=== PATIENT | female | born 1995 | race Two or more races ===

== ENCOUNTER 2023-10-11 15:05 | Inpatient (IN) | payer OTHER ==
[~2023-10-11] VITALS: Ht 160 cm; Wt 90.7 kg
[2023-10-11 16:12] LABS: HEMATOCRIT 34.4 % (36.0-45.00); HEMOGLOBIN 11.7 g/dL (12.0-15.00); MEAN CELL VOLUME 89.5 fL (80.00-100.00); MEAN CORPUSCULAR HEMOGLOBIN 30.4 pg (27.00-32.0); PLATELET COUNT 240 K/uL (150-450); RED BLOOD COUNT 3.85 M/uL (4.00-6.00); RED CELL DISTRIBUTION WIDTH 13.9 % (11.5-14.5)
[2023-10-11 16:31] LABS: ALBUMIN 3.1 gm/dL (3.4-5.0); BILIRUBIN TOTAL 0.22 mg/dL (0.3-1.2); CALCIUM 8.9 mg/dL (8.5-10.1); CREATININE SERUM 0.52 mg/dL (0.55-1.02); GFR 138.46; GLOBULINA 3.6 G/DL (2.4-3.5); POTASSIUM 3.92 mEq/L (3.5-5.1); TOTAL PROTEIN 6.7 gm/dL (6.4-8.2)
[2023-10-11 16:33] LABS: INR 0.94; PARTIAL THROMBOPLASTIN TIME 29.6 SECONDS (22.0-34.0); PROTHROMBIN TIME 9.9 SECONDS (9.0-11.5)
[2023-10-11] MEDS ORDERED: PRENATABS RX T1 EACH PO (18:15)
[2023-10-11 20:56] LABS: PH,URINE 6.5 (5.0-8.0); URINE APPEARANCE Clear; URINE BILIRRUBIN Negative (NEGATIVE); URINE BLOOD Large; URINE COLOR Yellow; URINE GLUCOSE Negative (NEGATIVE); URINE LEUKOCYTE Small; URINE NITRATE Negative; URINE PROTEIN Negative (NEGATIVE); URINE UROBILINOGEN 0.2 E.U./dl
[2023-10-11 21:05] LABS: URINE BACTERIA 75.5 uL (0.0-1933); URINE EPITHELIAL CELLS 5.8 uL (0.0-38.8); URINE RBC 2281.3 uL (0.0-20.8)
[2023-10-12] MEDS ORDERED: MORGIDOX100 MG PO (09:04)
== END 2023-10-12 10:33 | disposition home or self-care (01) | DRG 805 ==
LOC: LDR 15:05 → SURH 10-12 00:30
PROVIDERS: ADMIT Obstetrics & Gynecology; ATTEND Obstetrics & Gynecology
PROC: 10E0XZZ Delivery of Products of Conception, External Approach (ICD-10-PCS; principal; 2023-10-11)
PROC: 4A1HXCZ Monitoring of Products of Conception, Cardiac Rate, External Approach (ICD-10-PCS; 2023-10-11)
PROC: BY4CZZZ Ultrasonography of Second Trimester, Single Fetus (ICD-10-PCS; 2023-10-11)
PROC: BU4CZZZ Ultrasonography of Uterus and Ovaries (ICD-10-PCS; 2023-10-11)
PROC: 3E033VJ Introduction of Other Hormone into Peripheral Vein, Percutaneous Approach (ICD-10-PCS; 2023-10-11)
PROC: 3E0P7VZ Introduction of Hormone into Female Reproductive, Via Natural or Artificial Opening (ICD-10-PCS; 2023-10-11)
DX: O69.0XX0 Labor and delivery complicated by prolapse of cord, not applicable or unspecified (principal); O60.12X0 Preterm labor second trimester with preterm delivery second trimester, not applicable or unspecified; Z37.1 Single stillbirth; O42.112 Preterm premature rupture of membranes, onset of labor more than 24 hours following rupture, second trimester; O26.842 Uterine size-date discrepancy, second trimester; Z3A.19 19 weeks gestation of pregnancy; Z20.822 Contact with and (suspected) exposure to COVID-19

== ENCOUNTER 2024-10-26 14:29 | Emergency (ER) | payer OTHER ==
[~2024-10-26] VITALS: Ht 160 cm; Wt 86.2 kg
[~2024-10-26 14:29] MED LIST: IBU600 MG PO; MORGIDOX100 MG PO; PRENATABS RX T1 EACH PO
[2024-10-26] MEDS ORDERED: PRENATA CHEWAB1 EACH (14:43)
[2024-10-26 14:44] VITALS: BP 116/78; O2SAT 100
[2024-10-26 17:07] LABS: HEMATOCRIT 37.7 % (36.0-45.00); HEMOGLOBIN 13.1 g/dL (12.0-15.00); MEAN CELL VOLUME 86.1 fL (80.00-100.00); MEAN CORPUSCULAR HGB CONC 34.8 g/dl (32.0-36.0); PLATELET COUNT 293 K/uL (150-450); RED BLOOD COUNT 4.38 M/uL (4.00-6.00); RED CELL DISTRIBUTION WIDTH 14.2 % (11.5-14.5)
[2024-10-26 17:39] LABS: INR 0.98; PARTIAL THROMBOPLASTIN TIME 30.5 SECONDS (22.0-34.0); PROTHROMBIN TIME 10.7 SECONDS (9.0-11.5)
[2024-10-26 17:44] LABS: PH,URINE 5.5 (5.0-8.0); URINE APPEARANCE Clear; URINE BILIRRUBIN Negative (NEGATIVE); URINE BLOOD Large; URINE COLOR Yellow; URINE GLUCOSE Negative (NEGATIVE); URINE KETONE 15 (NEGATIVE); URINE LEUKOCYTE Negative; URINE NITRATE Negative; URINE PROTEIN Negative (NEGATIVE); URINE UROBILINOGEN 0.2 E.U./dl
[2024-10-26 17:45] LABS: URINE BACTERIA 145.5 uL (0.0-1933); URINE EPITHELIAL CELLS 5.6 uL (0.0-38.8); URINE RBC 78.6 uL (0.0-20.8); URINE WBC 3.4 uL (0.0-23.2)
[2024-10-26 18:01] LABS: ALBUMIN 3.8 gm/dL (3.4-5.0); BILIRUBIN TOTAL 0.32 mg/dL (0.3-1.2); CALCIUM 9.2 mg/dL (8.5-10.1); CREATININE SERUM 0.6 mg/dL (0.55-1.02); GFR 116.6; POTASSIUM 3.62 mEq/L (3.5-5.1); TOTAL PROTEIN 7.8 gm/dL (6.4-8.2)
== END 2024-10-26 22:21 | disposition home or self-care (01) ==
LOC: ER 14:32
PROVIDERS: Emergency Medicine
DX: O44.00 Complete placenta previa NOS or without hemorrhage, unspecified trimester (principal); Z3A.11 11 weeks gestation of pregnancy

== ENCOUNTER 2024-10-31 07:55 | Outpatient (CLI) | payer OTHER ==
[~2024-10-31 07:55] MED LIST changes: +PRENATA CHEWAB1 EACH
[2024-11-06] MEDS ORDERED: ZITHROMAX1 GM PO (12:39)
[2024-11-06] MEDS ORDERED: ZITHROMAX500 MG PO (13:35)
== END 2024-10-31 07:56 | disposition home or self-care (01) ==
LOC: PRENATAL 07:55
PROVIDERS: ATTEND Obstetrics & Gynecology Maternal & Fetal Medicine
DX: O36.80X0 Pregnancy with inconclusive fetal viability, not applicable or unspecified (principal); Z36.82 Encounter for antenatal screening for nuchal translucency; Z36.1 Encounter for antenatal screening for raised alphafetoprotein level; Z14.8 Genetic carrier of other disease; O26.859 Spotting complicating pregnancy, unspecified trimester; O34.40 Maternal care for other abnormalities of cervix, unspecified trimester; Z3A.12 12 weeks gestation of pregnancy

== ENCOUNTER 2024-10-31 10:03 | Outpatient (CLI) | payer OTHER | END 2024-10-31 10:07 | disposition home or self-care (01) | LOC: LAB 10:03 | PROVIDERS: ATTEND Obstetrics & Gynecology Maternal & Fetal Medicine | DX: O26.879 Cervical shortening, unspecified trimester (principal); O09.219 Supervision of pregnancy with history of pre-term labor, unspecified trimester ==

== ENCOUNTER → 2024-11-23 | Outpatient (CLI) | payer OTHER ==
[~2024-11-23] MED LIST changes: +ZITHROMAX1 GM PO; +ZITHROMAX500 MG PO
== END | disposition home or self-care (01) ==
LOC: PRENATAL 11:52
PROVIDERS: ATTEND Obstetrics & Gynecology Maternal & Fetal Medicine
DX: O26.849 Uterine size-date discrepancy, unspecified trimester (principal); O34.40 Maternal care for other abnormalities of cervix, unspecified trimester; Z3A.16 16 weeks gestation of pregnancy

== ENCOUNTER → 2024-11-29 | Day surgery (SDC) | payer OTHER ==
[2024-11-27 09:52] LABS: HEMATOCRIT 38.6 % (36.0-45.00); HEMOGLOBIN 12.6 g/dL (12.0-15.00); MEAN CELL VOLUME 89.4 fL (80.00-100.00); MEAN CORPUSCULAR HEMOGLOBIN 29.1 pg (27.00-32.0); MEAN CORPUSCULAR HGB CONC 32.6 g/dl (32.0-36.0); PLATELET COUNT 266 K/uL (150-450); RED BLOOD COUNT 4.32 M/uL (4.00-6.00); RED CELL DISTRIBUTION WIDTH 14.4 % (11.5-14.5)
[2024-11-27 10:00] LABS: PH,URINE 5.5 (5.0-8.0); URINE APPEARANCE Clear; URINE BILIRRUBIN Negative (NEGATIVE); URINE BLOOD Negative; URINE COLOR Yellow; URINE GLUCOSE Negative (NEGATIVE); URINE KETONE Negative (NEGATIVE); URINE LEUKOCYTE Negative; URINE NITRATE Negative; URINE PROTEIN Negative (NEGATIVE); URINE UROBILINOGEN 0.2 E.U./dl
[2024-11-27 10:01] LABS: URINE BACTERIA 562.9 uL (0.0-1933); URINE EPITHELIAL CELLS 8.5 uL (0.0-38.8); URINE RBC 2.5 uL (0.0-20.8); URINE WBC 9.3 uL (0.0-23.2)
[2024-11-27 10:34] LABS: INR 0.99; PARTIAL THROMBOPLASTIN TIME 30.2 SECONDS (22.0-34.0); PROTHROMBIN TIME 10.8 SECONDS (9.0-11.5)
[~2024-11-29] MED LIST changes: +AZITHROMYCIN 500 MG VIAL IV ONE; +AZITHROMYCIN250 MG PO
[2024-12-05 23:04] LABS: mycoplasma hominis Negative (Negative); ureaplasma urealyticum Positive (Negative)
== END | disposition home or self-care (01) ==
LOC: ADM 11-27 08:15 → CIR.AMB 07:00
PROVIDERS: ATTEND Obstetrics & Gynecology Maternal & Fetal Medicine
DX: O34.32 Maternal care for cervical incompetence, second trimester (principal); Z3A.17 17 weeks gestation of pregnancy; J32.9 Chronic sinusitis, unspecified

== ENCOUNTER 2024-12-18 09:04 | Outpatient (CLI) | payer OTHER ==
[~2024-12-18 09:04] MED LIST changes: -AZITHROMYCIN 500 MG VIAL IV ONE
== END 2024-12-18 09:06 | disposition home or self-care (01) ==
LOC: PRENATAL 09:04
PROVIDERS: ATTEND Obstetrics & Gynecology Maternal & Fetal Medicine
DX: O44.00 Complete placenta previa NOS or without hemorrhage, unspecified trimester (principal); Z14.8 Genetic carrier of other disease; O34.30 Maternal care for cervical incompetence, unspecified trimester; O34.40 Maternal care for other abnormalities of cervix, unspecified trimester; Z3A.19 19 weeks gestation of pregnancy

== ENCOUNTER 2025-01-22 10:17 | Outpatient (CLI) | payer OTHER | END 2025-01-22 10:18 | disposition home or self-care (01) | LOC: PRENATAL 10:17 | PROVIDERS: ATTEND Obstetrics & Gynecology Maternal & Fetal Medicine | DX: O26.849 Uterine size-date discrepancy, unspecified trimester (principal); O34.30 Maternal care for cervical incompetence, unspecified trimester; O34.40 Maternal care for other abnormalities of cervix, unspecified trimester; Z3A.24 24 weeks gestation of pregnancy ==

== ENCOUNTER 2025-02-20 09:40 | Outpatient (CLI) | payer OTHER ==
[2025-02-20] MEDS ORDERED: ENDOMETRIN100 MG VAG (13:28)
[2025-02-20] MEDS ORDERED: ECOTRIN81 MG PO (13:28)
== END 2025-02-20 09:41 | disposition home or self-care (01) ==
LOC: PRENATAL 09:40
PROVIDERS: ATTEND Obstetrics & Gynecology Maternal & Fetal Medicine
DX: O26.849 Uterine size-date discrepancy, unspecified trimester (principal); O34.40 Maternal care for other abnormalities of cervix, unspecified trimester; O34.30 Maternal care for cervical incompetence, unspecified trimester; Z3A.28 28 weeks gestation of pregnancy

== ENCOUNTER 2025-02-20 13:21 | Inpatient (IN) | payer OTHER ==
[~2025-02-20] VITALS: Ht 160 cm; Wt 97.5 kg
[2025-02-20 12:38] VITALS: BP 107/73
[2025-02-20] MEDS ORDERED: ECOTRIN81 MG PO (13:28)
[2025-02-20] MEDS ORDERED: ENDOMETRIN100 MG VAG (13:28)
[2025-02-20] MEDS ORDERED: RINGERS SOLUTION,LACTATED 1,000 ML IV SCH (13:30)
[2025-02-20 14:17] LABS: BASO % 0.3 % (0.1-1.2); EOS # 0.09 (0.04-0.54); EOS % 0.6 % (0.7-7.0); HEMOGLOBIN 11.4 g/dL (11.2-15.7); LYMPH # 1.56 (1.18-3.74); LYMPH % 10.1 % (19.3-53.1); MEAN CORPUSCULAR HEMOGLOBIN 30.7 pg (25.6-32.2); MONO % 5.2 % (4.7-12.5); NEUT # 12.78 (1.56-6.13); PLATELET COUNT 321 K/uL (163-369); RED BLOOD COUNT 3.71 M/uL (3.93-5.22); RED CELL DISTRIBUTION WIDTH 12.9 % (11.6-14.4)
[2025-02-20 14:24] LABS: PH,URINE 5.5 (5.0-8.0); URINE APPEARANCE Cloudy; URINE BILIRRUBIN Negative (NEGATIVE); URINE BLOOD Negative; URINE COLOR Dark Yellow; URINE GLUCOSE Negative (NEGATIVE); URINE KETONE 15 (NEGATIVE); URINE LEUKOCYTE Small; URINE NITRATE Negative; URINE PROTEIN Trace (NEGATIVE)
[2025-02-20 14:30] LABS: URINE CAST 1.76 uL (0.0-1.40); URINE EPITHELIAL CELLS 41.7 uL (0.0-38.8); URINE RBC 78.6 uL (0.0-20.8); URINE WBC 86.1 uL (0.0-23.2)
[2025-02-20 14:44] LABS: ALBUMIN 2.9 gm/dL (3.4-5.0); BILIRUBIN TOTAL 0.4 mg/dL (0.3-1.2); CALCIUM 8.9 mg/dL (8.5-10.1); CREATININE SERUM 0.58 mg/dL (0.55-1.02); GFR 120.47; GLOBULINA 3.9 G/DL (2.4-3.5); POTASSIUM 3.95 mEq/L (3.5-5.1); TOTAL PROTEIN 6.8 gm/dL (6.4-8.2)
[2025-02-20] MEDS ORDERED: ASPIRIN 81 MG TABLET.EC PO SCH (14:49)
[2025-02-20 15:19] VITALS: BP 118/74
[2025-02-20 15:31] LABS: TYPE CELLS SQUAMOUS; URINE MUCUS MODERATE
[2025-02-20 19:45] VITALS: BP 96/65
[2025-02-20] MEDS ORDERED: TERBUTALINE SULFATE 1 MG/ML AMPUL ONE (20:06)
[2025-02-20] MEDS ORDERED: TERBUTALINE SULFATE 1 MG/ML AMPUL SUBCUTANEO SCH (20:15)
[2025-02-20 23:21] VITALS: BP 94/59
[2025-02-21 03:13] VITALS: BP 95/62
[2025-02-21 06:17] VITALS: BP 101/64; O2SAT 99
[2025-02-21] MEDS ORDERED: AMPICILLIN SODIUM 1,000 MG VIAL IV SCH (08:57)
[2025-02-21] MEDS ORDERED: AZITHROMYCIN 250 MG TABLET PO SCH (09:00)
[2025-02-21] MEDS ORDERED: NIFEDIPINE 30 MG TAB.SA.OSM PO SCH (09:00)
[2025-02-21] MEDS ORDERED: FAMOtidine 20 MG TABLET PO SCH (09:00)
[2025-02-21] MEDS ORDERED: ASPIRIN 81 MG TABLET.EC PO SCH (09:00)
[2025-02-21 11:40] VITALS: BP 102/63; O2SAT 97
[2025-02-21 15:26] VITALS: BP 113/78
[2025-02-21 19:02] VITALS: BP 110/70
[2025-02-21 23:21] VITALS: BP 97/61
[2025-02-22 03:00] VITALS: BP 95/64
[2025-02-22 06:23] VITALS: BP 106/69; O2SAT 98
[2025-02-22 12:06] VITALS: BP 96/64
[2025-02-22 16:00] VITALS: BP 91/63; O2SAT 97
[2025-02-22] MEDS ORDERED: PATIENTS OWN MEDICATION (MEDICAMENTO EN PISO) VAG SCH (21:00)
[2025-02-22] MEDS ORDERED: PATIENTS OWN MEDICATION (MEDICAMENTO EN PISO NEVERA) VAG SCH (21:00)
[2025-02-23 01:31] VITALS: BP 98/60
[2025-02-23 09:21] VITALS: BP 106/69
[2025-02-23 16:46] VITALS: BP 97/64
[2025-02-24] VITALS: BP 99/64
[2025-02-24 09:20] VITALS: BP 100/65
[2025-02-24 17:38] VITALS: BP 99/65
[2025-02-24 21:25] VITALS: BP 104/70
[2025-02-25 01:21] VITALS: BP 94/62
[2025-02-25 06:36] VITALS: BP 103/68
[2025-02-25 09:02] VITALS: BP 100/65
[2025-02-25 16:15] VITALS: BP 95/62
[2025-02-26 00:08] VITALS: BP 102/59
[2025-02-26 08:00] VITALS: BP 100/66
[2025-02-26 16:00] VITALS: BP 107/70
[2025-02-27] VITALS: BP 92/60
[2025-02-27 08:00] VITALS: BP 105/70
[2025-02-27 16:31] VITALS: BP 97/64
[2025-02-28] VITALS: BP 100/60
[2025-02-28 08:56] VITALS: BP 127/62
[2025-02-28 16:38] VITALS: BP 97/65
[2025-03-01] VITALS: BP 92/61
[2025-03-01 08:35] VITALS: BP 112/68
[2025-03-01] MEDS ORDERED: AZITHROMYCIN 250 MG TABLET PO SCH (17:00)
[2025-03-01 17:19] VITALS: BP 104/72
[2025-03-02 01:00] VITALS: BP 101/68
[2025-03-02 08:00] VITALS: BP 90/62
[2025-03-02] MEDS ORDERED: BETAMETHASONE ACETATE,SOD PHOS 30 MG/5 ML ML IM SCH (10:00)
[2025-03-02 16:45] VITALS: BP 99/64
[2025-03-03 00:18] VITALS: BP 101/63
[2025-03-03 08:00] VITALS: BP 94/64
[2025-03-03 17:16] VITALS: BP 105/72
[2025-03-04 00:10] VITALS: BP 97/62
[2025-03-04 08:00] VITALS: BP 90/60
[2025-03-04 16:00] VITALS: BP 100/64
[2025-03-04 23:45] VITALS: BP 97/60
[2025-03-05 08:00] VITALS: BP 93/56
[2025-03-05 12:35] VITALS: BP 102/68
[2025-03-05] MEDS ORDERED: TERBUTALINE SULFATE 1 MG/ML AMPUL SUBCUTANEO SCH (13:45)
[2025-03-05] MEDS ORDERED: AMPICILLIN SODIUM 2,000 MG VIAL IV SCH (14:00)
[2025-03-05] MEDS ORDERED: RINGERS SOLUTION,LACTATED 1,000 ML IV SCH (14:30)
[2025-03-05 15:28] VITALS: BP 95/56
[2025-03-05 19:29] VITALS: BP 89/56
[2025-03-05 23:08] VITALS: BP 109/67
[2025-03-06] MEDS ORDERED: TERBUTALINE SULFATE 1 MG/ML AMPUL ONE (02:52)
[2025-03-06 03:00] VITALS: BP 107/68
[2025-03-06] MEDS ORDERED: TERBUTALINE SULFATE 1 MG/ML AMPUL SUBCUTANEO SCH (03:30)
[2025-03-06 06:24] VITALS: BP 101/67; O2SAT 98
[2025-03-06 10:21] VITALS: BP 112/69
[2025-03-06 16:05] VITALS: BP 105/66
[2025-03-07] VITALS (7 sets, daily range): BP systolic 94–125; BP diastolic 60–80
[2025-03-07] MEDS ORDERED: TERBUTALINE SULFATE 1 MG/ML AMPUL ONE ×2 (11:22→23:37)
[2025-03-07] MEDS ORDERED: TERBUTALINE SULFATE 1 MG/ML AMPUL SUBCUTANEO SCH (11:30)
[2025-03-07] MEDS ORDERED: ACETAMINOPHEN 500 MG GEL..CAP PO ONE (23:38)
[2025-03-08] MEDS ORDERED: TERBUTALINE SULFATE 1 MG/ML AMPUL SUBCUTANEO SCH ×2 (00:30→23:00)
[2025-03-08] MEDS ORDERED: ACETAMINOPHEN 500 MG GEL..CAP PO PRN ×2 (00:30→07:45)
[2025-03-08 03:17] VITALS: BP 105/65
[2025-03-08 06:11] VITALS: BP 112/75; O2SAT 99
[2025-03-08] MEDS ORDERED: AZITHROMYCIN 250 MG TABLET PO SCH (11:46)
[2025-03-08] MEDS ORDERED: AMPICILLIN SODIUM 1,000 MG in 0.9 % SODIUM CHLORIDE 100 ML IV SCH (12:00)
[2025-03-08 12:19] VITALS: BP 107/68
[2025-03-08] MEDS ORDERED: AMPICILLIN SODIUM 1,000 MG VIAL IV SCH (15:00)
[2025-03-08 15:15] VITALS: BP 89/60
[2025-03-08] MEDS ORDERED: TERBUTALINE SULFATE 1 MG/ML AMPUL ONE (17:01)
[2025-03-08] MEDS ORDERED: TERBUTALINE SULFATE 1 MG/ML AMPUL SUBCUTANEO STA (17:08)
[2025-03-08 19:35] VITALS: BP 103/68; O2SAT 99
[2025-03-08 23:20] VITALS: BP 91/52
[2025-03-09 04:01] VITALS: BP 90/60
[2025-03-09 07:17] VITALS: BP 100/67
[2025-03-09 10:26] VITALS: BP 95/65
[2025-03-09 17:03] VITALS: BP 101/67
[2025-03-09 23:57] VITALS: BP 94/64
[2025-03-10 08:48] VITALS: BP 94/64
[2025-03-10] MEDS ORDERED: TERBUTALINE SULFATE 1 MG/ML AMPUL ONE (17:38)
[2025-03-10] MEDS ORDERED: TERBUTALINE SULFATE 1 MG/ML AMPUL SUBCUTANEO SCH (18:00)
[2025-03-10 18:05] VITALS: BP 126/77
[2025-03-10 18:53] VITALS: BP 105/70
[2025-03-10] MEDS ORDERED: AMPICILLIN SODIUM 2,000 MG VIAL IV SCH (20:00)
[2025-03-10 23:14] VITALS: BP 106/70
[2025-03-11] VITALS (8 sets, daily range): BP systolic 90–127; BP diastolic 56–75; O2SAT 100
[2025-03-11] MEDS ORDERED: TERBUTALINE SULFATE 1 MG/ML AMPUL SUBCUTANEO SCH (08:15)
[2025-03-11 10:09] LABS: BASO % 0.3 % (0.1-1.2); EOS # 0.08 (0.04-0.54); EOS % 0.6 % (0.7-7.0); HEMATOCRIT 32.7 % (34.1-44.9); HEMOGLOBIN 11.1 g/dL (11.2-15.7); LYMPH # 1.42 (1.18-3.74); LYMPH % 10.1 % (19.3-53.1); MEAN CORPUSCULAR HEMOGLOBIN 30.5 pg (25.6-32.2); MONO # 0.39 (0.24-0.82); MONO % 2.8 % (4.7-12.5); NEUT # 12.05 (1.56-6.13); NEUT % 85.6 % (34.0-71.1); PLATELET COUNT 292 K/uL (163-369); RED BLOOD COUNT 3.64 M/uL (3.93-5.22); RED CELL DISTRIBUTION WIDTH 13.2 % (11.6-14.4)
[2025-03-11] MEDS ORDERED: MAGNESIUM SULFATE IN WATER 4 GM/100 ML PIGGYBACK IV ONE (10:09)
[2025-03-11] MEDS ORDERED: MAGNESIUM SULFATE IN WATER 0.04 GM/ML IV.SOLN IV ONE (10:09)
[2025-03-11] MEDS ORDERED: MAGNESIUM SULFATE IN WATER 100 ML IV ONE (10:45)
[2025-03-11] MEDS ORDERED: MAGNESIUM SULFATE IN WATER 500 ML IV SCH (10:45)
[2025-03-11] MEDS ORDERED: OXYTOCIN 500 ML IV SCH (12:15)
[2025-03-11] MEDS ORDERED: ERYTHROMYCIN BASE OPHT 1GM EACH TUBE OP ONE (14:07)
[2025-03-11] MEDS ORDERED: OXYTOCIN 20 UNITS/1000ML RL PIGGYBAG IV ONE (14:07)
[2025-03-11] MEDS ORDERED: CHLORHEXIDINE GLUCONATE 120 ML BOTTLE TOP ONE ×2 (14:08→14:45)
[2025-03-11] MEDS ORDERED: LIDOCAINE HCL 1% 10ML VIAL ONE (14:08)
[2025-03-11] MEDS ORDERED: OXYTOCIN 1,000 ML IV SCH (14:45)
[2025-03-11] MEDS ORDERED: IBUprofen 400 MG TABLET PO PRN (14:45)
[2025-03-12 01:30] VITALS: BP 85/56
[2025-03-12 08:00] VITALS: BP 101/67
[2025-03-12 12:00] VITALS: BP 92/62
[2025-03-12 16:08] VITALS: BP 91/60
[2025-03-12 23:54] VITALS: BP 106/68
[2025-03-13 09:07] VITALS: BP 110/77
[2025-03-13] MEDS ORDERED: NAPROXEN500 MG PO (13:22)
== END 2025-03-13 14:39 | disposition home or self-care (01) | DRG 805 ==
LOC: LDR 13:21 → OB/GYN 02-22 10:31 → LDR 03-09 07:52 → OB/GYN 03-09 09:07
PROVIDERS: ADMIT Obstetrics & Gynecology; ATTEND Obstetrics & Gynecology
PROC: 4A1HXCZ Monitoring of Products of Conception, Cardiac Rate, External Approach (ICD-10-PCS; 2025-02-20)
PROC: 10E0XZZ Delivery of Products of Conception, External Approach (ICD-10-PCS; principal; 2025-03-11)
PROC: 0UQG7ZZ Repair Vagina, Via Natural or Artificial Opening (ICD-10-PCS; 2025-03-11)
DX: O71.4 Obstetric high vaginal laceration alone (principal); O60.14X0 Preterm labor third trimester with preterm delivery third trimester, not applicable or unspecified; O69.81X0 Labor and delivery complicated by cord around neck, without compression, not applicable or unspecified; O26.873 Cervical shortening, third trimester; Z37.0 Single live birth; Z3A.28 28 weeks gestation of pregnancy